=== PATIENT | female | born 1995 | race Caucasian/White ===

== ENCOUNTER 2018-08-05 13:36 | Observation (INO) | payer OTHER ==
[2018-08-05] VITALS (13 sets, daily range): BP systolic 92–125; BP diastolic 46–95
[~2018-08-05] VITALS: Ht 160 cm; Wt 68.1 kg
[2018-08-05 13:57] LABS: BILIRUBIN,URINE NEGATIVE (NEGATIVE); CLARITY,URINE SLIGHTLY CLOUDY; COLOR,URINE YELLOW; GLUCOSE, URINE (UA) NEGATIVE (NEGATIVE); KETONES,URINE NEGATIVE (NEGATIVE); LEUKOCYTE ESTERASE ,URINE 2+ (NEGATIVE); NITRITE,URINE NEGATIVE (NEGATIVE); PH,URINE 7 (5-9); PROTEIN,URINE NEGATIVE (NEGATIVE); UROBILINOGEN,URINE NORMAL (NORMAL)
[2018-08-05 14:15] LABS: BACTERIA,URINE FEW /HPF
[2018-08-05 14:18] LABS: AMPHETAMINE SCREEN, URINE NEGATIVE (NEGATIVE); BARBITURATE SCREEN URINE NEGATIVE (NEGATIVE); BENZODIAZEPINES SCREEN URINE NEGATIVE (NEGATIVE); CANNABINOID SCREEN, URINE NEGATIVE (NEGATIVE); COCAINE SCREEN URINE NEGATIVE (NEGATIVE); METHADONE STAT NEGATIVE (NEGATIVE); METHAMPHETAMINE SCREEN URINE S NEGATIVE (NEGATIVE); OPIATE SCREEN URINE NEGATIVE (NEGATIVE); OXYCODONE STAT NEGATIVE (NEGATIVE); PROPOXYPHENE STAT NEGATIVE (NEGATIVE); TRICYCLIC ANTIDEPRESSANTS SCRE NEGATIVE (NEGATIVE)
[2018-08-05 14:24] LABS: BASOPHILS % (AUTO) 0 % (0-10); EOSINOPHILS # (AUTO) 0.1 10^3/uL (0.0-0.3); EOSINOPHILS % (AUTO) 1 % (0-10); HEMATOCRIT 37 % (35-52); HEMOGLOBIN 11.9 G/DL (11.5-16.0); LYMPHOCYTES # (AUTO) 1.8 X 10^3 (1.0-4.0); LYMPHOCYTES % (AUTO) 15 % (12-44); MEAN CORPUSCULAR HEMOGLOBIN 28 PG (25-34); MEAN CORPUSCULAR HGB CONC 32 G/DL (32-36); MEAN CORPUSCULAR VOLUME 86 FL (80-99); MEAN PLATELET VOLUME 11.6 FL (7.4-10.4); MONOCYTES % (AUTO) 8 % (0-12); NEUTROPHILS % (AUTO) 76 % (42-75); PLATELET COUNT 198 10^3/uL (130-400); RED BLOOD COUNT 4.28 10^6/uL (4.35-5.85); RED CELL DISTRIBUTION WIDTH 12.4 % (10.0-14.5); WHITE BLOOD COUNT 11.9 10^3/uL (4.3-11.0)
[2018-08-05] MEDS ORDERED: ONDANSETRON 4 MG/2 ML (SDV) Z0FRAN IVP ONE (14:30)
[2018-08-05 14:44] LABS: ALANINE AMINOTRANSFERASE 18 U/L (0-55); ALBUMIN 4.2 GM/DL (3.2-4.5); ALKALINE PHOSPHATASE 46 U/L (40-136); BILIRUBIN,TOTAL 0.4 MG/DL (0.1-1.0); BUN/CREATININE RATIO 10; CALCIUM 8.8 MG/DL (8.5-10.1); CARBON DIOXIDE 24 MMOL/L (21-32); CHLORIDE 108 MMOL/L (98-107); CREATININE SERUM 0.87 MG/DL (0.60-1.30); GFR ESTIMATED > 60; GLUCOSE 97 MG/DL (70-105); POTASSIUM 3.7 MMOL/L (3.6-5.0); SALICYLATE < 5.0 MG/DL (5.0-20.0); SODIUM 140 MMOL/L (135-145)
[2018-08-05] MEDS ORDERED: NS IV 1000 ML 1,000 ML IV SCH (14:45)
[2018-08-05 14:46] LABS: ACETAMINOPHEN < 10 UG/ML (10-30)
--- NOTE | 2018-08-05 15:03 | ED Psychosocial ---
General Chief Complaint: Psych/Social Disorder Stated Complaint: OVERDOSE;DEPRESSED Source: patient, EMS, EMS notes reviewed Exam Limitations: no limitations History of Present Illness Date Seen by Provider: Aug 05, 2018 Time Seen by Provider: 13:36 Initial Comments Patient is a 22-year-old female who was brought to the emergency room by [facility] with reports of suicidal ideations, suicidal attempt, and drug overdose. She reports taking 12 of her prescribed Viibryd in an attempt to end her life around 1200 today. She states that she has been very stressed at school and has been seeking outpatient treatment for depression since the start of the school semester. She sees [facility] student [facility] for mental health services. She also complains of nausea and vomiting. She vomited one time in route to the hospital and EMS gave her 4 mg of Zofran IV. Timing/Duration: other (1200) Associated Symptoms: ingestion, suicidal ideation Allergies and Home Medications Allergies Coded Allergies: No Known Drug Allergies (Unverified , 08/05/18) Home Medications No Active Prescriptions or Reported Meds Patient Home Medication List Home Medication List Reviewed: Yes Review of Systems Constitutional: see HPI; No chills, No fever Psychiatric/Neurological: See HPI, Depressed All Other Systems Reviewed Negative Unless Noted: Yes Past Egmucvm-Tvlbcc-Svzets Hx Past Medical History Surgeries: No Psychosocial: Yes Depression Physical Exam Vital Signs - First Documented 08/05/18 13:36 Temp 98.0 Pulse 108 Resp 18 B/P (MAP) 117/69 (85) Pulse Ox 98 O2 Delivery Room Air Capillary Refill : Height, Weight, BMI Height: '" Weight: lbs. oz. kg; BMI Method: General Appearance: WD/WN, no apparent distress HEENT: PERRL/EOMI, normal ENT inspection Neck: non-tender, full range of motion Respiratory: chest non-tender, lungs clear, normal breath sounds, no respiratory distress, no accessory muscle use Cardiovascular: normal peripheral pulses, regular rate, rhythm, no edema, no gallop, no JVD, no murmur Gastrointestinal: normal bowel sounds, non tender, soft, no organomegaly, no pulsatile mass Extremities: normal range of motion, non-tender, normal capillary refill Neurologic/Psychiatric: alert, oriented x 3, depressed affect Appearance/Memory: appropriate appearance, appropriate insight Behavior/Eye Contact: cooperative, good eye contact, normal speech Thoughts/Hallucinations: normal thought pattern, no apparent hallucination Skin: normal color, warm/dry Progress/Results/Core Measures Results/Orders Lab Results Laboratory Tests Test 08/05/18 13:45 08/05/18 14:16 08/06/18 03:30 Range/Units Urine Color YELLOW Urine Clarity SLIGHTLY CLOUDY Urine pH 7 5-9 Urine Specific [place] 1.005 L 1.016-1.022 Urine Protein NEGATIVE NEGATIVE Urine Glucose (UA) NEGATIVE NEGATIVE Urine Ketones NEGATIVE NEGATIVE Urine Nitrite NEGATIVE NEGATIVE Urine Bilirubin NEGATIVE NEGATIVE Urine Urobilinogen NORMAL NORMAL MG/DL Urine Leukocyte Esterase 2+ H NEGATIVE Urine RBC (Auto) NEGATIVE NEGATIVE Urine RBC NONE /HPF Urine WBC 5-10 H /HPF Urine Squamous Epithelial Cells 10-25 H /HPF Urine Crystals NONE /LPF Urine Bacteria FEW H /HPF Urine Casts NONE /LPF Urine Mucus NEGATIVE /LPF Urine Culture Indicated YES Urine Opiates Screen NEGATIVE NEGATIVE Urine Oxycodone Screen NEGATIVE NEGATIVE Urine Methadone Screen NEGATIVE NEGATIVE Urine Propoxyphene Screen NEGATIVE NEGATIVE Urine Barbiturates Screen NEGATIVE NEGATIVE Ur Tricyclic Antidepressants Screen NEGATIVE NEGATIVE Urine Phencyclidine Screen NEGATIVE NEGATIVE Urine Amphetamines Screen NEGATIVE NEGATIVE Urine Methamphetamines Screen NEGATIVE NEGATIVE Urine Benzodiazepines Screen NEGATIVE NEGATIVE Urine Cocaine Screen NEGATIVE NEGATIVE Urine Cannabinoids Screen NEGATIVE NEGATIVE White Blood Count 11.9 H 12.2 H 4.3-11.0 10^3/uL Red Blood Count 4.28 L 4.01 L 4.35-5.85 10^6/uL Hemoglobin 11.9 11.6 11.5-16.0 G/DL Hematocrit 37 34 L 35-52 % Mean Corpuscular Volume 86 86 80-99 FL Mean Corpuscular Hemoglobin 28 29 25-34 PG Mean Corpuscular Hemoglobin Concent 32 34 32-36 G/DL Red Cell Distribution Width 12.4 12.4 10.0-14.5 % Platelet Count 198 189 130-400 10^3/uL Mean Platelet Volume 11.6 H 12.3 H 7.4-10.4 FL Neutrophils (%) (Auto) 76 H 74 42-75 % Lymphocytes (%) (Auto) 15 18 12-44 % Monocytes (%) (Auto) 8 7 0-12 % Eosinophils (%) (Auto) 1 0 0-10 % Basophils (%) (Auto) 0 0 0-10 % Neutrophils # (Auto) 9.0 H 9.0 H 1.8-7.8 X 10^3 Lymphocytes # (Auto) 1.8 2.2 1.0-4.0 X 10^3 Monocytes # (Auto) 1.0 0.9 0.0-1.0 X 10^3 Eosinophils # (Auto) 0.1 0.1 0.0-0.3 10^3/uL Basophils # (Auto) 0.0 0.0 0.0-0.1 10^3/uL Sodium Level 140 140 135-145 MMOL/L Potassium Level 3.7 3.7 3.6-5.0 MMOL/L Chloride Level 108 H 111 H 98-107 MMOL/L Carbon Dioxide Level 24 18 L 21-32 MMOL/L Anion Gap 8 11 5-14 MMOL/L Blood Urea Nitrogen 9 6 L 7-18 MG/DL Creatinine 0.87 0.76 0.60-1.30 MG/DL Estimat Glomerular Filtration Rate > 60 > 60 BUN/Creatinine Ratio 10 8 Glucose Level 97 86 70-105 MG/DL Calcium Level 8.8 8.7 8.5-10.1 MG/DL Corrected Calcium 8.6 8.5-10.1 MG/DL Total Bilirubin 0.4 0.1-1.0 MG/DL Aspartate Amino Transf (AST/SGOT) 17 5-34 U/L Alanine Aminotransferase (ALT/SGPT) 18 0-55 U/L Alkaline Phosphatase 46 40-136 U/L Total Protein 7.0 6.4-8.2 GM/DL Albumin 4.2 3.2-4.5 GM/DL Salicylates Level < 5.0 L 5.0-20.0 MG/DL Acetaminophen Level < 10 L 10-30 UG/ML Serum Alcohol < 10 <10 MG/DL Phosphorus Level 2.6 2.3-4.7 MG/DL Magnesium Level 2.0 1.8-2.4 MG/DL Micro Results Microbiology 08/05/18 Urine Culture - Final, Complete NO GROWTH My Orders Orders - NICHELLE MCKINNON Ua Culture If Indicated (08/05/18 13:47) Cbc With Automated Diff (08/05/18 13:47) Comprehensive Metabolic Panel (08/05/18 13:47) Alcohol (08/05/18 13:47) Drug Screen Stat (Urine) (08/05/18 13:47) Acetaminophen (08/05/18 13:47) Salicylate (08/05/18 13:47) Ekg Tracing (08/05/18 13:47) Saline Lock/Iv-Start (08/05/18 13:47) Monitor-Rhythm Ecg Trace Only (08/05/18 13:47) Saline Lock/Iv-Start (08/05/18 13:47) Urine Culture (08/05/18 13:45) Ondansetron Injection (Zofran Injectio (08/05/18 14:30) Ns Iv 1000 Ml (Sodium Chloride 0.9%) (08/05/18 14:45) Lorazepam Injection (Ativan Injection) (08/05/18 16:30) Medications Given in ED Vital Signs/I&O 08/06/18 08/06/18 08/06/18 08/06/18 10:00 11:00 12:00 12:40 Pulse 84 85 90 90 Resp 19 20 28 28 B/P (MAP) 109/74 (86) 111/71 (84) 90/52 (65) 90/52 Pulse Ox 93 90 91 94 O2 Delivery Room Air Room Air Room Air Room Air Progress Progress Note : Time: 14:50 Progress Note I have seen and evaluated the patient at this time. Poison control was called on arrival to the ED and they recommended the patient to be admitted for monitoring due to lengthy half life of 24hrs and the need to monitory for sedation, tremors, and possible seizure activity. They report nausea, vomiting, and diarrhea are expected. Dr. Jung was contacted at this time and she agrees to accept the patient to her services and to admit to the ICU. She reports she will be out to evaluate the patient shortly. 1540: Dr. Jung is here to see the patient at this time. 1626: The patient began to have tremors of her legs at this time. Dr. Jung agrees that Ativan 0.5 mg should be given to prevent any further hyperactivity. 1700: The patient needed to use the restroom and pulled off all of her monitoring equipment and her hospital gown and walked to the restroom with assistance of her mother. She had been resting quietly prior to this and her tremors have resolved. 1830: Poison control called back to check on the patient and they were updated on the patient requiring ativan for tremor activity and they were concerned with serotonin syndrome and faxed over a protocol for treatment of this. The patient is already in ICU at this time but I have updated Dr. Jung on their concern at this time (183) and the protocol was sent to the ICU. EKG : EKG Time: 14:09 Rate: 93 Rhythm: Normal Sinus Intervals: Normal ECG Comparisson: No Previous ECG Available ECG Impression: Normal Departure Communication (Admissions) Time/Spoke to Admitting Phy: 14:50 Dr. Jung Impression Primary Impression: Drug overdose Additional Impression: Suicide attempt Disposition: ADMITTED INPATIENT Condition: Stable/Unchanged Admissions Decision to Admit Reason: Admit from ER (General) Decision to Admit/Date: Aug 05, 2018 Time/Decision to Admit Time: 15:03 Departure-Patient Inst. Referrals: [facility] (PCP) Primary Care Physician Scripts No Active Prescriptions or Reported Meds NICHELLE MCKINNON Aug 05, 2018 15:03
[2018-08-05] MEDS ORDERED: ONDANSETRON 4 MG/2 ML (SDV) Z0FRAN IVP PRN (16:15)
--- NOTE | 2018-08-05 16:19 | History & Physicial ---
HPI History of Present Illness: HPI/Chief Complaint This is a 22-year-old white female who is been followed at the [facility] for depression and anxiety since the beginning of the semester. She had been on Vibryd 40 mg a day and per her notes had been compliant with her medication. The patient has been seen by counseling where she has had a great deal stressors because of her schoolwork. Evidently today she felt like there is no use to continue and took 12 of her Vibryd. She was transported to the emergency room here by EMS and had had one episode of emesis. At the time of my interview today she will not answer me and looks around as if she really doesn't know where she is. The history is obtained from her mother and from the emergency room physician. She does follow commands and moves all of her extremities and intermittently nods her head yes or no but will not answer with verbal responses. Source: family Exam Limitations: clinical condition Date Seen 08/05/18 Time Seen by a Provider: 16:[address] Salinas MD [facility] Referring Physician Date of Admission Aug 05, 2018 at 15:08 Home Medications & Allergies Home Medications Reviewed patient Home Medication Reconciliation performed by pharmacy medication reconciliations feed research technician and/or nursing. Patients Allergies have been reviewed. Allergies Allergies Coded Allergies No Known Drug Allergies ([id number]/16/18) Past Wdavnbk-Npbsme-Yjjjss Hx Patient Social History Marrital Status: single Employed/Student: student, full-time Alcohol Use: Rarely Uses Recreational Drug Use: No Smoking Status: Never a Smoker Recent Foreign Travel: No Contact w/other who traveled: No Recent Infectious Disease Expo: No Surgeries No Respiratory No Cardiovascular No Neurological No Gastrointestinal No Endocrine History of Endocrine Disorders: No HEENT History of HEENT Disorders: No Cancer No Psychosocial History of Psychiatric Problem: Yes Behavioral Health Disorders: Anxiety, Depression Blood Transfusions History of Blood Disorders: No Family Medical History Significant Family History: Psychiatric Problems Review of Systems Constitutional: see HPI EENTM: no symptoms reported Respiratory: no symptoms reported Cardiovascular: no symptoms reported Gastrointestinal: no symptoms reported Genitourinary: no symptoms reported Musculoskeletal: no symptoms reported Psychiatric/Neurological: Anxiety, Depressed, Emotional Problems Physical Exam Physical Exam Vital Signs Vital Signs - First Documented 08/05/18 13:36 Temp 98.0 Pulse 108 Resp 18 B/P (MAP) 117/69 (85) Pulse Ox 98 O2 Delivery Room Air Capillary Refill : Less Than 3 Seconds Height, Weight, BMI Height: 5'3.00" Weight: 145lbs. oz. 65.382003dq; BMI Method:Stated General Appearance: Other HEENT: Normal ENT Inspection, Pharynx Normal Neck: Full Range of Motion, Normal Inspection, Non Tender, Supple Respiratory: Chest Non Tender, Lungs Clear, Normal Breath Sounds, No Accessory Muscle Use, No Respiratory Distress Cardiovascular: Regular Rate, Rhythm, No Gallop, No Murmur Gastrointestinal: Normal Bowel Sounds, No Organomegaly, Non Tender, Soft Rectal: Deferred Extremity: Normal Inspection, Normal Range of Motion, Non Tender, No Calf Tenderness Neurologic/Psychiatric: Aphasia, Depressed Affect, Disoriented Skin: Normal Color, Warm/Dry Assessment/Plan Admission Diagnosis Suicide gesture Acute on chronic depression Anxiety Plan to admit overnight to make sure the patient is medically stable. Have recommended evaluation for inpatient treatment as the patient has been depressed for years and has been noncompliant with taking medication. In discussion with the mother she feels like the medication may be part of the problem with the suicide gesture. Mothers contemplating taking her home with her in the morning if she is medically stable. Admission Status: Observation Copy Copies To 1: COURT SALINAS MD, KATHLEEN M MD Aug 05, 2018 16:19
[2018-08-05] MEDS ORDERED: LORazepam INJ 2 MG/ML (ATIVAN) VIAL IVP PRN (16:30)
[2018-08-05] MEDS ORDERED: CATHETER FLUSH 10 ML SYR IV PRN (16:30)
[2018-08-05] MEDS: NS IV 1000 ML 1,000 ML IV SCH (18:34)
[2018-08-05] MEDS ORDERED: FLU QUADRIvalent (5+ YOA) 2018-2019 (AFLURIA) 0.5 ML IM ONE (19:45)
[2018-08-06] VITALS (14 sets, daily range): BP systolic 90–117; BP diastolic 52–74
[2018-08-06] MEDS: NS IV 1000 ML 1,000 ML IV SCH (03:14)
[2018-08-06 04:20] LABS: BASOPHILS % (AUTO) 0 % (0-10); EOSINOPHILS # (AUTO) 0.1 10^3/uL (0.0-0.3); EOSINOPHILS % (AUTO) 0 % (0-10); HEMATOCRIT 34 % (35-52); HEMOGLOBIN 11.6 G/DL (11.5-16.0); LYMPHOCYTES # (AUTO) 2.2 X 10^3 (1.0-4.0); LYMPHOCYTES % (AUTO) 18 % (12-44); MEAN CORPUSCULAR HEMOGLOBIN 29 PG (25-34); MEAN CORPUSCULAR HGB CONC 34 G/DL (32-36); MEAN CORPUSCULAR VOLUME 86 FL (80-99); MEAN PLATELET VOLUME 12.3 FL (7.4-10.4); MONOCYTES # (AUTO) 0.9 X 10^3 (0.0-1.0); MONOCYTES % (AUTO) 7 % (0-12); NEUTROPHILS % (AUTO) 74 % (42-75); PLATELET COUNT 189 10^3/uL (130-400); RED BLOOD COUNT 4.01 10^6/uL (4.35-5.85); RED CELL DISTRIBUTION WIDTH 12.4 % (10.0-14.5); WHITE BLOOD COUNT 12.2 10^3/uL (4.3-11.0)
[2018-08-06 04:45] LABS: BUN/CREATININE RATIO 8; CALCIUM 8.7 MG/DL (8.5-10.1); CARBON DIOXIDE 18 MMOL/L (21-32); CHLORIDE 111 MMOL/L (98-107); CREATININE SERUM 0.76 MG/DL (0.60-1.30); GFR ESTIMATED > 60; GLUCOSE 86 MG/DL (70-105); PHOSPHORUS 2.6 MG/DL (2.3-4.7); POTASSIUM 3.7 MMOL/L (3.6-5.0); SODIUM 140 MMOL/L (135-145)
[2018-08-06] MEDS ORDERED: MAGNESIUM 1 GM/100 ML IVPB 100 ML IV SCH (06:00)
[2018-08-06] MEDS ORDERED: KCL 20 MEQ TAB (K-DUR) PO SCH (06:00)
[2018-08-06] MEDS ORDERED: POTASSIUM CL 10MEQ/50ML IVPB 50 ML IV SCH (06:00)
--- NOTE | 2018-08-06 09:01 | Progress Note-Hospitalist ---
Subjective HPI/CC On Admission Date Seen by Provider: Aug 06, 2018 Time Seen by Provider: 08:00 This is a 22-year-old white female who is been followed at the [facility] for depression and anxiety since the beginning of the semester. She had been on Vibryd 40 mg a day and per her notes had been compliant with her medication. The patient has been seen by counseling where she has had a great deal stressors because of her schoolwork. Evidently today she felt like there is no use to continue until 12 of her Vibryd. She was transported to the emergency room here by EMS and had had one episode of emesis. At the time of my interview today she will not answer me and looks around as if she really doesn't know where she is. The history is obtained from her mother and from the emergency room physician. She does follow commands and moves all of her extremities and intermittently nods her head yes or no but will not answer with verbal responses. Subjective/Events-last exam Patient is awake and alert but quiet this morning. She looks to her mother for reassurance often. She is currently unable to voice that she would not attempt self-harm again. Mother is concerned that the medication was what potentiated in actuated the patient's suicide gesture. Yesterday the patient was agitated and restless most likely secondary to the elevated serotonin levels. She says she's hungry this morning. The mother is considering taking her today if she meets criteria after screening. The mother will either take her home or will stay here with her in town. Review of Systems Neurological: Confusion Objective Exam Vital Signs Vital Signs Date Time Temp Pulse Resp B/P (MAP) Pulse Ox O2 Delivery O2 Flow Rate FiO2 08/06/18 08:00 92 27 113/68 (83) 95 Room Air 08/06/18 04:00 97.9 Capillary Refill : Less Than 3 Seconds General Appearance: WD/WN HEENT: Normal ENT Inspection Neck: Full Range of Motion, Normal Inspection, Non Tender, Supple Respiratory: Lungs Clear, Normal Breath Sounds, No Accessory Muscle Use, No Respiratory Distress Cardiovascular: Regular Rate, Rhythm, No Gallop, No Murmur, Normal Peripheral Pulses Gastrointestinal: Normal Bowel Sounds, No Organomegaly, Non Tender, Soft Extremity: Normal Capillary Refill, Normal Range of Motion, Non Tender Results/Procedures Lab Laboratory Tests 08/05/18 14:16 08/06/18 03:30 Patient resulted labs reviewed. Assessment/Plan Assessment and Plan Assess & Plan/Chief Complaint 1. Suicide gesture. 2. Acute and chronic depression and anxiety 3. Elevated serotonin levels with confusion and agitation resolved Plan for mental health screening and dispensation based on the safety needs of the patient. Clinical Quality Measures DVT/VTE Risk/Contraindication: RFS Level Per Nursing on Admit: 0=No Risk/No VTE PPX TONI SALINAS MD Aug 06, 2018 09:01
[2018-08-06] MEDS ORDERED: VILA20TA PO (10:52)
--- NOTE | 2018-08-06 12:20 | Discharge Summary-Hospitalist ---
Diagnosis/Chief Complaint Date of Admission Aug 05, 2018 at 15:08 Date of Discharge Aug.06 Discharge Date: Aug 06, 2018 Discharge Time: 13:00 Admission Diagnosis Suicide gesture Acute on chronic depression Anxiety Plan to admit overnight to make sure the patient is medically stable. Have recommended evaluation for inpatient treatment as the patient has been depressed for years and has been noncompliant with taking medication. In discussion with the mother she feels like the medication may be part of the problem with the suicide gesture. Mothers contemplating taking her home with her in the morning if she is medically stable. Discharge Diagnosis suicide gesture acute on chronic depression and anxiety Discharge Summary Discharge Physical Exam Allergies: Coded Allergies: No Known Drug Allergies (Unverified , 08/05/18) Vitals & I&Os Vital Signs Date Time Temp Pulse Resp B/P (MAP) Pulse Ox O2 Delivery O2 Flow Rate FiO2 08/06/18 09:00 93 20 117/62 (80) 93 Room Air 08/06/18 04:00 97.9 General Appearance: No Apparent Distress, WD/WN, Other (quiet) Respiratory: Lungs Clear, Normal Breath Sounds, No Accessory Muscle Use, No Respiratory Distress Cardiovascular: Regular Rate, Rhythm, No Gallop, No Murmur Gastrointestinal: Normal Bowel Sounds, Non Tender, Soft Extremity: No Calf Tenderness Skin: Normal Color, Warm/Dry Neurologic/Psychiatric: Alert, Depressed Affect Hospital Course Pt admitted to the ICU . Given Ativan for tremors and hallucinations and confusion. Pt improved by am and screened by mental health. Plan is to d/c in care of her parents and close f/[place] at the [facility] 2[place] Labs (last 24 hrs) Laboratory Tests 08/05/18 13:45: Urine Color YELLOW, Urine Clarity SLIGHTLY CLOUDY, Urine pH 7, Urine Specific [place] [employer] 1.005L, Urine Protein NEGATIVE, Urine Glucose (UA) NEGATIVE, Urine Ketones NEGATIVE, Urine Nitrite NEGATIVE, Urine Bilirubin NEGATIVE, Urine Urobilinogen NORMAL, Urine Leukocyte Esterase 2+H, Urine RBC (Auto) NEGATIVE, Urine RBC NONE, Urine WBC 5-10H, Urine Squamous Epithelial Cells 10-25H, Urine Crystals NONE, Urine Bacteria FEWH, Urine Casts NONE, Urine Mucus NEGATIVE, Urine Culture Indicated YES, Urine Opiates Screen NEGATIVE, Urine Oxycodone Screen NEGATIVE, Urine Methadone Screen NEGATIVE, Urine Propoxyphene Screen NEGATIVE, Urine Barbiturates Screen NEGATIVE, Ur Tricyclic Antidepressants Screen NEGATIVE, Urine Phencyclidine Screen NEGATIVE, Urine Amphetamines Screen NEGATIVE, Urine Methamphetamines Screen NEGATIVE, Urine Benzodiazepines Screen NEGATIVE, Urine Cocaine Screen NEGATIVE, Urine Cannabinoids Screen NEGATIVE 08/05/18 14:16: White Blood Count 11.9H, Red Blood Count 4.28L, Hemoglobin 11.9, Hematocrit 37, Mean Corpuscular Volume 86, Mean Corpuscular Hemoglobin 28, Mean Corpuscular Hemoglobin Concent 32, Red Cell Distribution Width 12.4, Platelet Count 198, Mean Platelet Volume 11.6H, Neutrophils (%) (Auto) 76H, Lymphocytes (%) (Auto) 15, Monocytes (%) (Auto) 8, Eosinophils (%) (Auto) 1, Basophils (%) (Auto) 0, Neutrophils # (Auto) 9.0H, Lymphocytes # (Auto) 1.8, Monocytes # (Auto) 1.0, Eosinophils # (Auto) 0.1, Basophils # (Auto) 0.0, Sodium Level 140, Potassium Level 3.7, Chloride Level 108H, Carbon Dioxide Level 24, Anion Gap 8, Blood Urea Nitrogen 9, Creatinine 0.87, Estimat Glomerular Filtration Rate > 60, BUN/ Creatinine Ratio 10, Glucose Level 97, Calcium Level 8.8, Corrected Calcium 8.6 , Total Bilirubin 0.4, Aspartate Amino Transf (AST/SGOT) 17, Alanine Aminotransferase (ALT/SGPT) 18, Alkaline Phosphatase 46, Total Protein 7.0, Albumin 4.2, Salicylates Level < 5.0L, Acetaminophen Level < 10L, Serum Alcohol < 10 08/06/18 03:30: White Blood Count 12.2H, Red Blood Count 4.01L, Hemoglobin 11.6, Hematocrit 34L , Mean Corpuscular Volume 86, Mean Corpuscular Hemoglobin 29, Mean Corpuscular Hemoglobin Concent 34, Red Cell Distribution Width 12.4, Platelet Count 189, Mean Platelet Volume 12.3H, Neutrophils (%) (Auto) 74, Lymphocytes (%) (Auto) 18 , Monocytes (%) (Auto) 7, Eosinophils (%) (Auto) 0, Basophils (%) (Auto) 0, Neutrophils # (Auto) 9.0H, Lymphocytes # (Auto) 2.2, Monocytes # (Auto) 0.9, Eosinophils # (Auto) 0.1, Basophils # (Auto) 0.0, Sodium Level 140, Potassium Level 3.7, Chloride Level 111H, Carbon Dioxide Level 18L, Anion Gap 11, Blood Urea Nitrogen 6L, Creatinine 0.76, Estimat Glomerular Filtration Rate > 60, BUN/ Creatinine Ratio 8, Glucose Level 86, Calcium Level 8.7, Phosphorus Level 2.6, Magnesium Level 2.0 Patient resulted labs reviewed. Discussion & Recommendations Discharge Planning: >30 minutes discharge planning Discharge Home Medications: Active Scripts Active Reported Viibryd (Vilazodone Hydrochloride) 20 Mg Tablet 20 Mg PO DAILY Condition at discharge stable Instructions to patient/family Please see electronic discharge instructions given to patient. Clinical Quality Measures DVT/VTE Risk/Contraindication: RFS Level Per Nursing on Admit: 0=No Risk/No VTE PPX TONI SALINAS MD Aug 06, 2018 12:19
== END 2018-08-06 12:13 | disposition home or self-care (01) ==
LOC: EDBD 13:37 → ER 13:37 → UNDOADMOB 15:08 → ICU 15:08 → UNDODISOB 08-06 12:40
PROVIDERS: ADMIT Internal Medicine; ATTEND Internal Medicine
DX: T43.202A Poisoning by unspecified antidepressants, intentional self-harm, initial encounter (principal); F32.9 Major depressive disorder, single episode, unspecified; F41.9 Anxiety disorder, unspecified
CPT/HCPCS: 36415; 80048; 80053; 80306; 80320; 80329; 81000; 83735; 84100; 85025; 87088; 93005; 93041; 96361; 96374; G0378